=== PATIENT | female | born 2000 | race Caucasian/White ===

== ENCOUNTER 2019-09-11 20:50 | Emergency (ER) | payer SELFPAY ==
[~2019-09-11] VITALS: Ht 162.6 cm; Wt 74.0 kg
[2019-09-11 22:20] LABS: CLARITY URINE CLOUDY (CLEAR); COLOR URINE ORANGE (YELLOW); KETONES URINE TRACE (NEGATIVE); LEUKOCYTE ESTERASE URINE 1+ (NEGATIVE); NITRITE URINE NEGATIVE (NEGATIVE); OCCULT BLOOD URINE 3+ (NEGATIVE); PROTEIN URINE 1+ (NEGATIVE); SPECIFIC GRAVITY URINE 1.023 (1.005-1.030)
[2019-09-11] MEDS ORDERED: IBUPROFEN 800MG TABLET PO ONE (23:45)
[2019-09-12 00:12] VITALS: BP 101/62
[2019-09-12] MEDS ORDERED: HYDROCODONE/ACETAMINOPHEN 5/325MG TABLET PO ONE (00:15)
[2019-09-12] MEDS ORDERED: ONDANSETRON 4MG ODT PO ONE (00:15)
== END 2019-09-12 01:05 | disposition home or self-care (01) ==
LOC: ER 20:50
DX: N12 Tubulo-interstitial nephritis, not specified as acute or chronic (principal)
CPT/HCPCS: 81003; 81025; 99284; Q0162

== ENCOUNTER 2021-04-04 16:55 | Observation (INO) | payer MEDICAID | END 2021-04-04 20:00 | disposition home or self-care (01) | LOC: 8 EST A/PP 16:55 | PROVIDERS: ADMIT Obstetrics & Gynecology; ATTEND Obstetrics & Gynecology | DX: Z34.92 Encounter for supervision of normal pregnancy, unspecified, second trimester (principal); Z3A.21 21 weeks gestation of pregnancy; V43.92XA Unspecified car occupant injured in collision with other type car in traffic accident, initial encounter; Y93.89 Activity, other specified; Y92.488 Other paved roadways as the place of occurrence of the external cause | CPT/HCPCS: 59025; 76805; G0378; 99281 ==